=== PATIENT | female | born 1965 | race Caucasian/White ===

== ENCOUNTER 2017-01-15 10:05 | Outpatient (CLI) | payer BC ==
--- NOTE | 2017-01-17 07:45 | Mammography Report ---
DIGITAL BILATERAL SCREENING MAMMOGRAM: 01/15/2017 CLINICAL HISTORY: A 51-year-old female in for routine screening mammogram. Patient has no family hi story of breast cancer. Patient does have a past history of breast reduction surgery. COMPARISON: 08/27/2012, 08/08/2015, 09/05/2015 TECHNIQUE: Craniocaudad and oblique lateral views of each breast were obtained with [facility] Full Fie ld digital mammography. Axillary exaggerated craniocaudad view of each breast was obtained to compli ment the exam. FINDINGS: Heterogeneously dense breasts are noted bilaterally. Scarring is seen also in the breasts related to prior breast reduction surgery. No significant clusters of calcification are seen. No s ignificant masses are noted. No change is seen as compared to preceding exam dated 09/05/2015, which was taken after patient's breast reduction surgery. IMPRESSION: BREASTS APPEAR RADIOGRAPHICALLY BENIGN. BIRADS CATEGORY 1 - NEGATIVE. RECOMMENDATIONS: Annual bilateral screening mammography. STANDARD QUALIFYING STATEMENTS 1. This examination was reviewed with the aid of Computer-Aided Detection (CAD). 2. A negative or benign imaging report should not delay biopsy if clinically suspicious findings are present. Consider surgical consultation if warranted. More than 5% of cancers are not identified by abad doss. 3. Dense breasts may obscure an underlying neoplasm. JOB #: [id number] EXT JOB #:[id number]
== END 2017-01-15 10:06 | disposition home or self-care (01) ==
LOC: DI 10:05
PROVIDERS: ATTEND Family Medicine
DX: Z12.39 Encounter for other screening for malignant neoplasm of breast (principal)
CPT/HCPCS: 77067

== ENCOUNTER 2017-01-15 10:11 | Outpatient (CLI) | payer BC ==
--- NOTE | 2017-01-16 18:32 | XRAY Report ---
LEFT ELBOW, THREE VIEWS: 01/15/2017 CLINICAL INDICATION: Patient is having pain in the left elbow. FINDINGS: Prominent posterior fat pad is noted. This indicates a left elbow joint effusion. There is subtle cortical discontinuity noted along the lateral aspect of the base of the left radial head. This is suspicious for a recent subtle fracture of the left radial head. Recommend clinical correla tion. Secondary consideration for this finding would be an old fracture. IMPRESSION: SMALL LEFT ELBOW JOINT EFFUSION IN ASSOCIATION WITH SUBTLE PROBABLY ACUTE OR RECENT FRAC TURE OF THE LATERAL ASPECT OF THE BASE OF THE RADIAL HEAD. RECOMMEND CLINICAL CORRELATION. JOB #: [id number] EXT JOB #:[id number]
== END 2017-01-15 10:12 | disposition home or self-care (01) ==
LOC: DI 10:11
PROVIDERS: ATTEND Family Medicine
DX: S52.122A Displaced fracture of head of left radius, initial encounter for closed fracture (principal)

== ENCOUNTER 2017-03-27 09:15 | Day surgery (SDC) | payer BC ==
[2017-03-27] MEDS ORDERED: LACTATED RINGERS 1,000 ML IV ONE (09:53)
[2017-03-27 10:14] LABS: HCG UR QUAL NEGATIVE
[2017-03-27] MEDS ORDERED: MIDAZOLAM 2 MG/2 ML VIAL IVP ONE (10:34)
[2017-03-27] MEDS ORDERED: fentaNYL 100 MCG/2 ML VIAL IVP ONE (10:34)
--- NOTE | 2017-03-27 11:26 | HISTORY & PHYSICAL EXAMINATION ---
HPI - History of Present Illness HPI Comment/Other: This is to serve as an update to H and P performed in January. Patient is here for screening colonoscopy. She is at average risk for developing colon cancer. None Allergies: BACTRIM (SULFAMETHOXAZOLE-TRIMETHOPRIM) (SULFAMETHOXAZOLE- TRIMETHOPRIM) (Critical) SULFA (Critical) Past Medical History: Reviewed history and no changes required: Anemia Depression Anxiety Panic attacks Past Surgical History: Reviewed history and no changes required: Laproscopy fibroids breast reduction Family History Summary: Reviewed history and no changes required: 02/14/2017 Mother () - Has Family History of Lung/Respiratory Disease - [facility] Cancer - Entered On: 02/14/2017 Social History: Reviewed history and no changes required: Risk Factors: Smoked Tobacco Use: Never smoker Alcohol use: yes Drinks per day: 2 Exercise: yes Previous Tobacco Use: Problems were reviewed with the patient during this visit. Medications were reviewed with the patient during this visit. Allergies were reviewed with the patient during this visit. Allergies: BACTRIM (SULFAMETHOXAZOLE-TRIMETHOPRIM) (SULFAMETHOXAZOLE-TRIMETHOPRIM) ( Critical) SULFA (Critical) Physical Exam General: well developed, well nourished, in no acute distress Lungs: clear bilaterally to A & P Heart: regular rate and rhythm, S1, S2 without murmurs, rubs, gallops, or clicks Abdomen: bowel sounds positive; abdomen soft and non-tender without masses, organomegaly, or hernias noted Pulses: pulses normal in all 4 extremities Extremities: no clubbing, cyanosis, edema, or deformity noted with normal full range of motion of all joints Cervical Nodes: no significant adenopathy Psych: alert and cooperative; normal mood and affect; normal attention span and concentration Problems: Problems Added: 1) Dx of Screening, colon cancer ([id number]) (ICD-V76.51) Impression & Recommendations: Problem # 1: screening for colon cancer Will proceed with colonoscopy PMH/PSH - Past Medical History Cardiovascular: positive: None Respiratory: positive: None Endocrine/Autoimmune: positive: None GI: positive: None : positive: None HEENT: positive: None Psych: positive: None Musculoskeletal: positive: None Derm: positive: None MRSA Hx?: Yes - 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 Social & Family Hx - Social History ETOH Use: Wine Meds/Allgy - Home Medications Home Medications: Ambulatory Orders Medication Instructions Recorded Confirmed No Known Home Medications [No 03/26/17 03/26/17 Known Home Medications] - Allergies Allergies/Adverse Reactions: Allergies Allergy/AdvReac Type Severity Reaction Status Date / Time sulfamethoxazole AdvReac Anaphylaxis Verified 03/26/17 13:01 [From Bactrim] trimethoprim [From Bactrim] AdvReac Anaphylaxis Verified 03/26/17 13:01 Exam - Vital Signs Vital Signs: Vital Signs x48h Temp Pulse Pulse Resp BP Pulse Ox 03/27/17 11:18 66 16 93/61 94 03/27/17 11:15 36.6 C 79 18 101/66 99 03/27/17 09:43 35.4 C L 68 16 114/88 H 97 Results - Lab Results Other Lab Results: Lab Results x24hrs 03/27/17 Range/Units 10:00 Ur Specific [place] >=1.030 H (1.002-1.030) Urine HCG, Qual NEGATIVE
[2017-03-27 11:33] VITALS: BP 98/62
== END 2017-03-27 09:16 | disposition home or self-care (01) ==
LOC: SDS 09:15
PROVIDERS: ATTEND Surgery
PROC: 0DBP8ZX Excision of Rectum, Via Natural or Artificial Opening Endoscopic, Diagnostic (ICD-10-PCS; 2017-03-27)
PROC: 0DBH8ZX Excision of Cecum, Via Natural or Artificial Opening Endoscopic, Diagnostic (ICD-10-PCS; principal; 2017-03-27 10:30)
DX: Z12.11 Encounter for screening for malignant neoplasm of colon (principal); D12.0 Benign neoplasm of cecum; K62.1 Rectal polyp; K64.8 Other hemorrhoids
CPT/HCPCS: 45380; 45385; 81025; J7120

== ENCOUNTER 2017-04-01 11:24 | Outpatient (CLI) | payer BC ==
--- NOTE | 2017-04-01 17:24 | XRAY Report ---
THREE VIEW LEFT ELBOW: 04/01/2017 CLINICAL INDICATION: Followup radial head fracture. AP, lateral, oblique views of the left elbow demonstrate stable appearance of the left radial head fr acture. Effusion appears unchanged. No definite new fracture is identified. No radiopaque foreign body is seen in the soft tissues. IMPRESSION: STABLE APPEARANCE OF RADIAL HEAD FRACTURE. NO NEW FRACTURE IS IDENTIFIED. JOB #: [id number] EXT JOB #:[id number]
== END 2017-04-01 11:25 | disposition home or self-care (01) ==
LOC: DI 11:24
PROVIDERS: ATTEND Pediatrics
DX: S52.122D Displaced fracture of head of left radius, subsequent encounter for closed fracture with routine healing (principal)

== ENCOUNTER 2020-10-30 11:16 | Outpatient (CLI) | payer BC ==
--- NOTE | 2020-10-31 13:19 | Mammography Report ---
BILATERAL DIGITAL SCREENING MAMMOGRAM 3D/2D: 10/30/2020 CLINICAL: Routine screening. Comparison is made to exams dated: 09/05/2015 mammogram, 01/15/2017 mammogram, and 08/27/2012 mammogram - [facility]. There are scattered fibroglandular elements in both breasts. No significant masses, calcifications, or other findings are seen in either breast. There has been no significant interval change. IMPRESSION: NEGATIVE There is no mammographic evidence of malignancy. A 1 year screening mammogram is recommended. This exam was interpreted at Station ID: [id number]. NOTE: For mammograms, a report in lay terms will be sent to the patient. Approximately 15% of breast malignancies will not be visualized mammographically. In the management of a palpable breast mass, a negative mammogram must not discourage biopsy of a clinically suspicious lesion. Electronically Signed By: Dylan Long M.D., [email or web address]:10/30/2020 12:09:01 ACR BI-RADS Category 1: Negative 3341F PARENCHYMAL PATTERN: (A) - The breast(s) demonstrate(s) scattered fibroglandular densities. BI-RADS CATEGORY: (1) - 1 RECOMMENDATION: (ANNUAL) - Recommend routine annual screening mammography. [id number] 1 year screening LATERALITY: (B)
== END 2020-10-30 11:17 | disposition home or self-care (01) ==
LOC: DI 11:16
PROVIDERS: ATTEND Nurse Practitioner Family
DX: Z12.31 Encounter for screening mammogram for malignant neoplasm of breast (principal)

== ENCOUNTER 2021-11-06 09:58 | Day surgery (SDC) | payer BC, OTHER ==
[2021-11-06] MEDS ORDERED: LACTATED RINGERS 1,000 ML IV ONE (10:14)
--- NOTE | 2021-11-06 11:05 | ANESTHESIA ---
Pre-Anesthesia VS, & Labs - Diagnosis history of polyps - Procedure colonoscopy Vital Signs: Temp Pulse Resp BP Pulse Ox 36.4 C L 72 16 127/97 H 99 11/06/21 10:15 11/06/21 10:15 11/06/21 10:15 11/06/21 10:15 11/06/21 10:15 Height: 5 ft 8 in Weight (kg): 69.5 kg Body Mass Index: 23.3 BMI Classification: Healthy weight - NPO Other (last water at 8am) - Is Patient ?: No Home Medications and Allergies No Known Home Medications 03/26/17 Allergies/Adverse Reactions: Allergies Allergy/AdvReac Type Severity Reaction Status Date / Time sulfamethoxazole AdvReac Anaphylaxis Verified 11/06/21 10:26 [From Bactrim] trimethoprim [From Bactrim] AdvReac Anaphylaxis Verified 11/06/21 10:26 Anes History & Medical History - Anesthetic History Anesthesia Complications: reports: No previous complications - Medical History Cardiovascular: reports: None Pulmonary: reports: None Gastrointestinal: reports: None Urinary: reports: None Musculoskeletal: reports: None Endocrine/Autoimmune: reports: None Skin: reports: None History of Cancer?: No - Surgical History General: reports: Colonoscopy Gynecologic: reports: Other Exam General: Alert, Oriented x3 Dental: WNL Mouth Opening: Greater than 4 Fingerbreadths Neck Mobility: Normal Mallampati classification: II Respiratory: Lungs clear Cardiovascular: Regular rate, Normal S1, Normal S2 Plan Anesthesia Type: Total IV Consent for Procedure(s) Verified and Reviewed: Yes Code Status: Attempt Resuscitation ASA classification: 1-Healthy patient Is this case an emergency?: No
[2021-11-06] MEDS ORDERED: LACTATED RINGERS 700 ML IV ONE (11:41)
[2021-11-06 11:59] VITALS: BP 120/99
--- NOTE | 2021-11-06 12:04 | ANESTHESIA POST OP EVALUATION ---
Anesthesia Post Eval - Post Anesthesia Eval Vitals: Last Vital Signs Temp 36.2 C L 11/06/21 11:38 Pulse 75 11/06/21 11:58 Resp 16 11/06/21 11:58 BP 120/99 H 11/06/21 11:58 Pulse Ox 100 11/06/21 11:58 CV Function Including HR & BP: Stable Pain Control: Satisfactory Nausea & Vomiting: Negative Mental Status: Baseline Respiratory Status: Airway Patent Hydration Status: Satisfactory Anesthesia Complications: None
== END 2021-11-06 09:59 | disposition home or self-care (01) ==
LOC: SDS 09:58
PROVIDERS: ATTEND Surgery
PROC: 0DBP8ZX Excision of Rectum, Via Natural or Artificial Opening Endoscopic, Diagnostic (ICD-10-PCS; principal; 2021-11-06 11:00)
DX: Z12.11 Encounter for screening for malignant neoplasm of colon (principal); R23.3 Spontaneous ecchymoses; K64.8 Other hemorrhoids; Z86.010 Personal history of colon polyps
CPT/HCPCS: 45380; J7120

== ENCOUNTER 2021-11-27 10:16 | Outpatient (CLI) | payer OTHER ==
--- NOTE | 2021-11-27 13:11 | Mammography Report ---
BILATERAL DIGITAL SCREENING MAMMOGRAM 3D/2D WITH EXAGGERATED CC: 11/27/2021 CLINICAL: Routine screening. Comparison is made to exams dated: 10/30/2020 mammogram, 01/15/2017 mammogram, and 09/05/2015 mammogram - [facility]. There are scattered fibroglandular elements in both breasts. No significant masses, calcifications, or other findings are seen in either breast. There has been no significant interval change. IMPRESSION: NEGATIVE There is no mammographic evidence of malignancy. A 1 year screening mammogram is recommended. This exam was interpreted at Station ID: [id number]. NOTE: For mammograms, a report in lay terms will be sent to the patient. Approximately 15% of breast malignancies will not be visualized mammographically. In the management of a palpable breast mass, a negative mammogram must not discourage biopsy of a clinically suspicious lesion. Electronically Signed By: Dylan Long M.D., jr/[email or web address]:11/27/2021 11:00:32 ACR BI-RADS Category 1: Negative 3341F PARENCHYMAL PATTERN: (A) - The breast(s) demonstrate(s) scattered fibroglandular densities. BI-RADS CATEGORY: (1) - 1 RECOMMENDATION: (ANNUAL) - Recommend routine annual screening mammography. [id number] 1 year screening LATERALITY: (B)
== END 2021-11-27 10:17 | disposition home or self-care (01) ==
LOC: DI.S 10:16
PROVIDERS: ATTEND Family Medicine
DX: Z12.31 Encounter for screening mammogram for malignant neoplasm of breast (principal)

== ENCOUNTER 2022-12-13 21:12 | Emergency (ER) | payer OTHER ==
--- NOTE | 2022-12-13 21:52 | ED Physician Documentation ---
PD HPI HEENT - Stated complaint Stated Complaint: L TOOTH PX - Chief complaint Chief Complaint: Heent - History obtained from History obtained from: Patient - Additional information Additional information: HPI from patient. Patient complains of left lower mandibular pain that she perceives as originat ing at the left mandibular first molar, which is a crown. Patient had a dental "deep cleaning" (per patient) 2 days ago. Since that time, starting the same day, she developed pain at said tooth, which has gradually worsened and, today, became associated with left jaw swelling. She has been having adequate pain relief with bund-cll-aucrkjf medication (Ambesol and ibuprofen). Her chief concern is the increasing swelling of the jaw. She contacted the dental office, but they had already closed for the night and would not be open again until Friday. The patient is taken Cipro twice daily x2 days; this was a prescription that was in the house from the previous prescription, although it is not clear if it was for her or her , nor is it clear what the prescription was originally for. In any case, she notes that the swelling of the jaw is worsening despite having taken 2 full days of the Cipro thus far. Review of Systems Constitutional: denies: Fever, Chills, Sweats Ears: denies: Ear pain Throat: reports: Dental pain / toothache. denies: Sore throat PD PAST MEDICAL HISTORY - Past Medical History Cardiovascular: None Respiratory: None Endocrine/Autoimmune: None GI: None : None HEENT: None Psych: None Musculoskeletal: None Derm: None - Past Surgical History General: Colonoscopy /APPLICATION SUPPORT MANAGER: Other - Present Medications Home Medications: Ambulatory Orders Medication Instructions Recorded Confirmed clindamycin HCL [Clindamycin HCl] 300 mg PO QID #27 cap 12/13/22 - Allergies Allergies/Adverse Reactions: Allergies Allergy/AdvReac Type Severity Reaction Status Date / Time sulfamethoxazole AdvReac Anaphylaxis Verified 11/06/21 10:26 [From Bactrim] trimethoprim [From Bactrim] AdvReac Anaphylaxis Verified 11/06/21 10:26 PD ED PE NORMAL - Vitals Vital signs reviewed: Yes - General General: Alert and oriented X 3, No acute distress, Well developed/nourished - HEENT HEENT: Pharynx benign PD ED PE EXPANDED - HEENT HEENT: Dentition normal HEENT Visual: 1 - swelling (swelling without fluctuance or distinctly palpable margins; mild TTP. no erythema) Results - Vitals Vitals: Oxygen O2 Source Room air PD Medical Decision Making - ED course Complexity details: considered differential, d/w patient ED course: Given 300mg Clindamycin and e-prescribed for same. Return precautions discussed. Advised to take the clindamycin but stop the cipro and to seek f/u with dentistry. Departure - Departure Disposition: Home, Self Care Clinical Impression: Dental infection Condition: Good Instructions: ED Tooth Pain Prescriptions: clindamycin HCL [Clindamycin HCl] 300 mg PO QID #27 cap Comments: I recommend that you stop the Cipro and start the clindamycin. We have given you the first dose of clindamycin in the emergency department, and I have electronically submitted a prescription for a 1 week course of clindamycin to the [facility] pharmacy in [place]. Follow-up with your dentist, next available appointment. Discharge Date/Time: 12/13/22 23:25
[2022-12-13] MEDS ORDERED: CLINDAMYCIN 150 MG CAPSULE PO STA ×2 (22:22→22:45)
[2022-12-13 23:27] VITALS: BP 128/84
== END 2022-12-13 23:25 | disposition home or self-care (01) ==
LOC: ED 21:12
DX: K04.7 Periapical abscess without sinus (principal); Z88.1 Allergy status to other antibiotic agents; Z88.2 Allergy status to sulfonamides
CPT/HCPCS: 99282; 99283; A9270

== ENCOUNTER 2023-05-07 18:42 | Emergency (ER) | payer BC, OTHER ==
--- NOTE | 2023-05-07 20:07 | XRAY Report ---
PROCEDURE: Hand 3 View RT INDICATIONS: Trauma TECHNIQUE: 3 views of the hand(s) acquired. COMPARISON: None. FINDINGS: Bones: Acute oblique fracture through mid shaft of fifth metacarpal bone is seen. No significant dis placement or angulation is seen at fracture site. Osteoarthritic changes are noted throughout right-h and. No suspicious bony lesions. Soft tissues: No suspicious soft tissue calcifications or masses. IMPRESSION: Acute nondisplaced mid fifth metacarpal shaft fracture. Reviewed by: Jamie Summers MD on 05/07/2023 8:06 PM PST Approved by: Jamie Summers MD on 05/07/2023 8:06 PM PST Station ID: [id number]
--- NOTE | 2023-05-07 20:50 | ED Physician Documentation ---
History of Present Illness - Stated complaint Stated Complaint: R HAND INJ - Chief complaint Chief Complaint: Ext Problem - Additonal information Additional information: She struck her hand on the [place] countertop accidentally and now has pain and swelling on the dorsum of the hand. [id number]. No history of previous injury. Review of Systems Musculoskeletal: reports: Extremity pain PD PAST MEDICAL HISTORY - Past Medical History Cardiovascular: None Respiratory: None Endocrine/Autoimmune: None GI: None : None HEENT: None Psych: None Musculoskeletal: None Derm: None - Past Surgical History Past Surgical History: No General: Colonoscopy /AUTO CLAIM REPRESENTATIVE: Other - Present Medications Home Medications: Ambulatory Orders Medication Instructions Recorded Confirmed No Known Home Medications 05/07/23 05/07/23 - Allergies Allergies/Adverse Reactions: Allergies Allergy/AdvReac Type Severity Reaction Status Date / Time sulfamethoxazole AdvReac Anaphylaxis Verified 05/07/23 20:34 [From Bactrim] trimethoprim [From Bactrim] AdvReac Anaphylaxis Verified 05/07/23 20:34 - Social History Does the pt smoke?: No Smoking Status: Never smoker PD ED PE NORMAL - Extremities Extremities: Other (Swelling on the dorsum of the right hand over the fourth and fifth metacarpals with some mild ecchymosis but no deformity. Neurovascular intact. Normal grasp. Tenderness over the fourth and fifth metacarpals) Results - Vitals Vitals: Vital Signs - 24 hr 05/07/23 18:49 Temperature 36.8 C Heart Rate 83 Respiratory 16 Rate Blood Pressure 140/86 H O2 Saturation 98 Oxygen O2 Source Room air - Rads (name of study) right hand Relevant Findings:: Final report received (Fifth metacarpal fracture nondisplaced shaft) PD Medical Decision Making - ED course Complexity details: reviewed results, d/w patient ED course: 57-year-old female here for evaluation right hand injury sustained when she accidentally struck her hand on hard countertop. She did sustain a nondisplaced midshaft fifth metacarpal fracture. Reassuring exam. Given the minor yulisa earance of this fracture she is placed in a TKO ulnar gutter. Routine care and emergent return precautions discussed I did recommend follow-up with orthopedics. Departure - Departure Disposition: 01 Home, Self Care Clinical Impression: Fracture of metacarpal of right hand, closed Qualifiers: Encounter type: initial encounter Metacarpal bone: fifth Metacarpal location: shaft Fracture alignment: nondisplaced Qualified Code(s): S62.356A - Nondisplaced fracture of shaft of fifth metacarpal bone, right hand, initial encounter for closed fracture Condition: Stable Record reviewed to determine appropriate education?: Yes Comments: Mya you struck your hand on the [place] counter at home and have pain and swelling on your hand. The x-ray confirms a nondisplaced right fifth metacarpal fracture. This is a hairline fracture that will heal with simple immobilization and time Please wear the Velcro splint as shown over the next several weeks. In general I would recommend Tylenol Motrin for discomfort. I do recommend follow-up with orthopedics for longer-term evaluation and management though this will be a fracture that is simply allowed time and will not require operative repair.
[2023-05-07 20:59] VITALS: BP 118/79; O2SAT 97
== END 2023-05-07 20:56 | disposition home or self-care (01) ==
LOC: ED 18:42
DX: S62.356A Nondisplaced fracture of shaft of fifth metacarpal bone, right hand, initial encounter for closed fracture (principal); W22.8XXA Striking against or struck by other objects, initial encounter
CPT/HCPCS: 99283